=== PATIENT | male | born 1995 | race Two or more races ===

== ENCOUNTER 2017-10-24 08:50 | Emergency (ER) | payer SELFPAY ==
[2017-10-24 09:17] VITALS: BMI 22.8
[2017-10-24] MEDS ORDERED: SODIUM CHLORIDE 0.9% 1000 ML INFUS.BAG IV ONE (09:33)
[2017-10-24] MEDS ORDERED: ONDANSETRON 4 MG/2 ML VIAL IVPUSH ONE (09:33)
[2017-10-24] MEDS ORDERED: ONDANSETRON 4 MG/2 ML VIAL ONE (09:42)
[2017-10-24] MEDS ORDERED: ACETAMINOPHEN 1000 MG/100 ML VIAL (NON FORMULARY) IVPB ONE (09:44)
[2017-10-24 09:57] LABS: BASO % 0.3 % (0-2.0); EOS % 0.2 % (0-4.5); HEMATOCRIT 39.8 % (35.4-49); HEMOGLOBIN 13.6 GM/dL (11.7-16.9); LYMPH % 17.5 % (8-40); MCH 30.2 pg (25.7-33.7); MCHC 34.3 g/dl (32.0-35.9); MEAN CELL VOLUME 88.2 fl (80-96); MEAN PLT VOLUME 10.7 fl (7.5-11.1); MONO % 7.9 % (3.8-10.2); NEUT % 74.1 % (42.8-82.8); PLATELET COUNT 167 K/MM3 (134-434); RBC 4.51 M/mm3 (4.00-5.60); RDW 13.1 % (11.9-15.9); WHITE BLOOD COUNT 7.5 K/mm3 (4.0-10.0)
[2017-10-24] MEDS ORDERED: ACETAMINOPHEN INJECTION 100 ML IVPB ONE (09:58)
[2017-10-24 10:19] LABS: INR 1.19 (0.82-1.09); PROTHROMBIN TIME (PATIENT) 13.4 SEC (9.7-13.0)
[2017-10-24 10:55] LABS: ALBUMIN 4.7 g/dl (3.4-5.0); ANION GAP 10 (8-16); BILIRUBIN,TOTAL 2.1 mg/dL (0.2-1.0); BLOOD UREA NITROGEN 20 mg/dL (7-18); CALCIUM 8.9 mg/dL (8.5-10.1); CHLORIDE 103 mmol/L (98-107); CO2 25 mmol/L (21-32); CREATININE 0.9 mg/dL (0.7-1.3); GLUCOSE,RANDOM 70 mg/dL (74-106); LIPASE 59 U/L (73-393); POTASSIUM 3.9 mmol/L (3.5-5.1); SGOT/AST 7 U/L (15-37); SGPT/ALT 9 U/L (12-78); SODIUM 138 mmol/L (136-145)
[2017-10-24 10:56] LABS: ALK PHOS 54 U/L (45-117)
--- NOTE | 2017-10-24 13:11 | PDOC ---
History of Present Illness - General Chief Complaint: Pain Stated Complaint: ABD PAIN Time Seen by Provider: 10/24/17 09:06 History Source: Patient Exam Limitations: No Limitations - History of Present Illness Initial Comments: 10/24/17 09:08 The patient is a 21M with no PMH who presents to the ER with abdominal pain. The patient states that around [id number] this morning, he felt abdominal pain that was achy and sharp, periumbilical, and did not radiate. He states he felt nauseous but did not vomit. He denies any exacerbating or alleviating factors. He denies anyone around him with similar symptoms. He denies fever, chills, vomiting, CP, SOB. He denies any testicular pain. Past History - Past Medical History Allergies/Adverse Reactions: Allergies Allergy/AdvReac Type Severity Reaction Status Date / Time No Known Allergies Allergy Verified 10/24/17 09:17 Home Medications: Ambulatory Orders NK [No Known Home Medication] 10/24/17 COPD: No - Suicide/Smoking/Psychosocial Hx Smoking History: Never smoked Have you smoked in the past 12 months: No Information on smoking cessation initiated: No Hx Alcohol Use: No Drug/Substance Use Hx: No Substance Use Type: None Review of Systems - Review of Systems Able to Perform ROS?: Yes Comments:: 10/24/17 13:21 GENERAL/CONSTITUTIONAL: No fever or chills. No weakness. HEAD, EYES, EARS, NOSE AND THROAT: No change in vision. No ear pain or discharge. No sore throat. CARDIOVASCULAR: No chest pain, palpitations, or lightheadedness. RESPIRATORY: No cough, wheezing, shortness of breath, or hemoptysis. GASTROINTESTINAL: Positive for nausea and abdominal pain. No vomiting, diarrhea , or constipation. GENITOURINARY: No dysuria, frequency, hematuria, or change in urination. MUSCULOSKELETAL: No joint or muscle swelling or pain. No neck or back pain. SKIN: No rash or lesions. NEUROLOGIC: No headache, numbness, tingling, weakness, loss of consciousness, or change in strength/sensation. ENDOCRINE: No increased thirst. No abnormal weight change. HEMATOLOGIC/LYMPHATIC: No anemia, easy bleeding, or history of blood clots. ALLERGIC/IMMUNOLOGIC: No hives or skin allergy. Is the patient limited Sami proficient: No *Physical Exam - Vital Signs Last Vital Signs Temp Pulse Resp BP Pulse Ox 97.9 F 67 16 107/62 100 10/24/17 08:50 10/24/17 08:50 10/24/17 08:50 10/24/17 08:50 10/24/17 08:50 - Physical Exam Comments: 10/24/17 13:21 GENERAL: Well developed, well nourished. Awake and alert. No acute distress. HEENT: Normocephalic, atraumatic. Hearing grossly normal. Moist mucous membranes. PERRLA, EOMI. No conjunctival pallor. Sclera are non-icteric. Oropharynx is clear. NECK: Supple. Full ROM. CARDIOVASCULAR: Regular rate and rhythm. No murmurs, rubs, or gallops. PULMONARY: No evidence of respiratory distress. Lungs clear to auscultation bilaterally. No wheezing, rales or rhonchi. ABDOMINAL: Soft. Tender to deep palpation over RLQ, McBurney's point. Negative rose's. Non-distended. No rebound or guarding. GENITOURINARY: No CVA tenderness bilaterally. MUSCULOSKELETAL: Normal range of motion at all joints. No bony deformities or tenderness. EXTREMITIES: No cyanosis. No clubbing. No edema. No calf tenderness. SKIN: Warm and dry. Normal capillary refill. No rashes. No jaundice. NEUROLOGICAL: Alert, awake, appropriate. Cranial nerves 2-12 intact. Normal speech. Gait is normal without ataxia. PSYCHIATRIC: Cooperative. Good eye contact. Appropriate mood and affect. ED Treatment Course - LABORATORY CBC & Chemistry Diagram: 10/24/17 09:45 10/24/17 09:45 - ADDITIONAL ORDERS Additional order review: Laboratory Results 10/24/17 10/24/17 10/24/17 09:45 09:45 09:32 PT with INR 13.40 H INR 1.19 H Sodium 138 Potassium 3.9 Chloride 103 Carbon Dioxide 25 Anion Gap 10 BUN 20 H Creatinine 0.9 Creat Clearance w eGFR > 60 Random Glucose 70 L Calcium 8.9 Total Bilirubin 2.1 H AST 7 L ALT 9 L Alkaline Phosphatase 54 Total Protein 8.0 Albumin 4.7 Lipase 59 L Blood Type O POSITIVE Antibody Screen Negative 10/24/17 09:45 RBC 4.51 MCV 88.2 MCHC 34.3 RDW 13.1 MPV 10.7 Neutrophils % 74.1 Lymphocytes % 17.5 Monocytes % 7.9 Eosinophils % 0.2 Basophils % 0.3 - RADIOLOGY Radiology Studies Ordered: Category Date Time Status ABDOMEN & PELVIS CT W/O CONTR [CT] Stat CT Scan 10/24/17 09:33 Completed - Medications Given in the ED: ED Medications Discontinued Medications Generic Name Dose Route Start Last Admin Trade Name Nadir PRN Reason Stop Dose Admin Acetaminophen 1,000 mg 10/24/17 09:44 10/24/17 10:02 Ofirmev Injection - IVPB 10/24/17 09:45 1,000 mg ONCE ONE Administration Ondansetron HCl 4 mg 10/24/17 09:33 10/24/17 09:50 Zofran Injection IVPUSH 10/24/17 09:34 4 mg ONCE ONE Administration Sodium Chloride 1,000 ml 10/24/17 09:33 10/24/17 09:50 Normal Saline - IV 10/24/17 09:34 1,000 ml ONCE ONE Administration Medical Decision Making - Medical Decision Making 10/24/17 13:19 The patient is a 21M with no PMH who presents with acute onset RLQ pain. The pt is tender in McBurney's point with anorexia, nausea, but no vomiting. Will rule out appy w/ CT. CT read: No definite CT evidence of acute appendicitis. Probable small intraluminal appendicolith. No definite CT findings of acute pathology are identified. I have discussed these findings with Dr. Meade, gen surg, who does not believe this is appendicitis. Will inform the patient to give us a urine sample. Pt has no white count. Pending UA. 10/24/17 14:31 UA negative. Will d/c home with PCP f/u. *DC/Admit/Observation/Transfer Diagnosis at time of Disposition: Abdominal pain Qualifiers: Abdominal location: right lower quadrant Qualified Code(s): R10.31 - Right lower quadrant pain - Discharge Dispostion Disposition: HOME Condition at time of disposition: Stable Decision to Admit order: No - Referrals Referrals: Steph Cavazos MD [Primary Care Provider] - - Patient Instructions Printed Discharge Instructions: DI for Abdominal Pain-Adult Additional Instructions: Please follow up with your primary care physician in 2-3 days. Please return to the ER if you have any signs or symptoms of chest pain, shortness of breath, uncontrollable fever, chills, nausea, vomiting, numbness, tingling, or weakness in any part of your body, changes in vision, or slurred speech. Please take your medications as prescribed. Please return to the ER if symptoms persist, worsen, or new symptoms arise. - Post Discharge Activity
--- NOTE | 2017-10-24 13:50 | PDOC ---
Attending Attestation - Resident Resident Name: Quirino Hoyt - ED Attending Attestation I have performed the following: I have examined & evaluated the patient, The case was reviewed & discussed with the resident, I agree w/resident's findings & plan, Exceptions are as noted - HPI HPI: 10/24/17 13:48 21 M with no PMH presents with 1 day of RLQ pain. States pain is constant, non- radiating. Denies F/C. Denies N/V/D/constipation. No scrotal pain. No dysuria. No surgical history. No flank pain. - Physicial Exam PE: 10/24/17 13:49 "GENERAL: Awake, alert, and fully oriented, in no acute distress. HEAD: No signs of trauma EYES: PERRLA, EOMI, sclera anicteric, conjunctiva clear ENT: Auricles normal inspection, hearing grossly normal, nares patent, oropharynx clear without exudates. Moist mucosa NECK: Nontender, no stepoffs, Normal ROM, supple, no lymphadenopathy, JVD, or masses LUNGS: Breath sounds equal, clear to auscultation bilaterally. No wheezes, and no crackles HEART: Regular rate and rhythm, normal S1 and S2, no murmurs, rubs or gallops ABDOMEN: + RLQ tenderness, normoactive bowel sounds. No guarding, no rebound. No masses EXTREMITIES: Normal range of motion, no edema. No clubbing or cyanosis. No cords, erythema, or tenderness NEUROLOGICAL: Cranial nerves II through XII intact. 5/5 strength and sensation in all extremities, Normal speech, normal gait, normal cerebellar function SKIN: Warm, Dry, normal turgor, no rashes or lesions noted. : normal scrotum and penis, no masses, no tenderness, normal lay, normal cremasteric reflex - Medical Decision Making 10/24/17 13:50 21 M with RLQ pain. Concerning for acute appy. No evidence of testicular torsion or other scrotal pathology. - Labs - UA - CTAP Labs, UA, and CTAP unremarkable. Pt reassessed - now has complete resolution of pain, tolerating PO. Pt is well appearing, with normal vitals. Clinically stable for DC at this time. I discussed the physical exam findings, ancillary test results and final diagnoses with the patient. I answered all of the patient's questions. The patient was satisfied with the care received and felt comfortable with the discharge plan and treatment plan. The patient agrees to follow up with the primary care physician within 24-72 hours.
[2017-10-24 14:28] LABS: URINE APPEARANCE CLEAR; URINE BILIRUBIN NEGATIVE (<2.0 mg/dL); URINE COLOR YELLOW; URINE GLUCOSE (UA) NEGATIVE (NEGATIVE); URINE KETONE 2+ (NEGATIVE); URINE LEUK ESTERASE NEGATIVE (NEGATIVE); URINE NITRITE NEGATIVE (NEGATIVE); URINE PROTEIN NEGATIVE (NEGATIVE); URINE UROBILINOGEN NEGATIVE mg/dL (0.2-1.0)
[2017-10-24 15:11] VITALS: BP 116/72; PULSE 69; TEMP 98.1
== END 2017-10-24 15:11 | disposition home or self-care (01) ==
LOC: JER 08:50
PROC: 3E033GC Introduction of Other Therapeutic Substance into Peripheral Vein, Percutaneous Approach (ICD-10-PCS; principal; 2017-10-24)
PROC: 3E033NZ Introduction of Analgesics, Hypnotics, Sedatives into Peripheral Vein, Percutaneous Approach (ICD-10-PCS; 2017-10-24)
DX: R10.31 Right lower quadrant pain (principal)
CPT/HCPCS: 36415; 74176-TC; 80053; 81003; 83690; 85025; 85610; 86850; 86900; 86901; 99283-25; J0131; J7030